=== PATIENT | male | born 1975 | race Caucasian/White ===

== ENCOUNTER → 2019-10-25 | Outpatient (CLI) | payer OTHER | LOC: COL.RAD | DX: K44.9 Diaphragmatic hernia without obstruction or gangrene (principal); K21.9 Gastro-esophageal reflux disease without esophagitis ==

== ENCOUNTER 2023-05-26 05:30 | Day surgery (SDC) | payer OTHER ==
[~2023-05-26] VITALS: Ht 177.8 cm; Wt 101.9 kg
[~2023-05-26 05:30] MED LIST: Ondansetron 4 MG/2 ML VIAL IV PRN
[2023-05-26] MEDS ORDERED: LR 1,000 ML IV SCH (06:00)
[2023-05-26 06:07] VITALS: BP 146/103; PULSE 68; TEMP 97.1
[2023-05-26] MEDS ORDERED: PRILOSEC 20MG20 MG PO (06:10)
[2023-05-26] MEDS ORDERED: NORVASC 5MG5 MG/TAB PO (06:10)
[2023-05-26] MEDS ORDERED: PRINIVIL20 MG PO (06:10)
[2023-05-26] MEDS ORDERED: EPA FISH OIL1 SGL PO (06:11)
[2023-05-26] MEDS ORDERED: TRICOR 48MG48 MG PO (06:11)
[2023-05-26] MEDS ORDERED: LIPITOR 40MG TA40 MG PO (06:12)
[2023-05-26] MEDS ORDERED: CELEXA 20MG20 MG/TAB PO (06:14)
[2023-05-26] MEDS ORDERED: Lidocaine PF 2% (20 MG/ML) 5 ML VIAL ONE (07:08)
[2023-05-26 07:40] VITALS: BP 128/85; PULSE 72; TEMP 97.1
[2023-05-26 07:55] VITALS: BP 117/87; PULSE 70
--- NOTE | 2023-05-26 08:10 | NUR ---
0740 RETURNS TO ROOM 1 PER CART. AWAKE ALERT RESP UNLABORED. AMBULATES TO RECLINER WITH STANDBY ASSIST. DENIES NAUSEA, CHEST/ABD PAIN. VITAL SIGNS OBTAINED. DENIES DYSPHAGIA CALL LIGHT AT SIDE. IN ROOM 0750 DISCHARGE INSTRUCTIONS REVIEWED. PATIENT VERBALIZES UNDERSTANDING. COPY PROVIDED IN DISCHARGE FOLDER. TOLERATES PO WATER, SODA AND AND APPLESAUCE WITHOUT NAUSEA. SWALLOWS WITHOUT DIFFICULTY 0806 DR LINDQUIST HERE TO VISIT WITH PATIENT [id number] DRESSES SELF
== END 2023-05-26 08:12 | disposition home or self-care (01) ==
LOC: SDCO 05:30
DX: K22.70 Barrett's esophagus without dysplasia (principal); K21.00 Gastro-esophageal reflux disease with esophagitis, without bleeding; Z12.11 Encounter for screening for malignant neoplasm of colon; D12.8 Benign neoplasm of rectum; G47.33 Obstructive sleep apnea (adult) (pediatric); F17.220 Nicotine dependence, chewing tobacco, uncomplicated
CPT/HCPCS: J2704; J7120